=== PATIENT | male | born 1980 | race Caucasian/White ===

== ENCOUNTER 2017-02-11 12:00 | Inpatient (IN) | payer MEDICARE ==
[2017-02-11] VITALS (13 sets, daily range): BP systolic 94–122; BP diastolic 57–84; PULSE 104–233; RESP 15–18; TEMP 98.2–98.6; O2SAT 97–99
[~2017-02-11] VITALS: Ht 167.6 cm; Wt 57.7 kg
[2017-02-11] MEDS ORDERED: DILTIAZEM HCL 25 MG/5 ML VIAL IV ONE (12:30)
--- NOTE | 2017-02-11 12:48 | PD ---
HPI Chief Complaint: Chest Pain Time Seen by Provider: 12:07 Travel History International Travel<30 days: No Contact w/Intl Traveler<30days: No Traveled to known affect area: No History of Present Illness HPI 36-year-old male that presents to the ED for evaluation of chest discomfort and palpitations. Patient has a significant history including GA, CHF and A. fib. 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 She is for the most part wheelchair bound and has had multiple issues with his heart. Patient takes Xeralto as well as antiarrhythmics. Per patient the symptoms started yesterday. He started having some chest pressure and sensation of numbness and tingling to his hands bilaterally. She states that this went away and he felt fine. His been having some cough since yesterday as well. 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 This is what prompted him evaluation. He did check his heart rate was elevated. He states that he took 2 of headaches or altered today to prevent any blood clots. He also took all his medications as prescribed but states that the symptoms have not improved. He states that he feels chest pressure radiates to both arms. He follows with Dr. Cervantes for cardiology. [facility] Past Medical History Hx Anticoagulant Therapy: Yes Atrial Fibrillation: Yes Cardiovascular Problems: Yes (GA, CHF, HX OF AFIB) High Cholesterol: Yes Congestive Heart Failure: Yes Neurologic: Yes (FRIEDREICH'S ATAXIA ) Tetanus Vaccination: Unknown Influenza Vaccination: Yes Social History Alcohol Use: Yes (DAILY 1 GLASS WINE) Tobacco Use: No Substance Use: Yes (THC) Allergies-Medications (Allergen,Severity, Reaction): Coded Allergies: No Known Allergies (Unverified , 02/11/17) Review of Systems Except as stated in HPI: all other systems reviewed are Neg Physical Exam Narrative GENERAL: SKIN: Warm and dry. HEAD: Atraumatic. Normocephalic. EYES: Pupils equal and round. No scleral icterus. No injection or drainage. ENT: No nasal bleeding or discharge. Mucous membranes pink and moist. Tongue is midline. No uvula deviation. NECK: Trachea midline. No JVD. CARDIOVASCULAR: Regular rate and rhythm. No murmurs, S3, S4. RESPIRATORY: No accessory muscle use. Clear to auscultation. Breath sounds equal bilaterally. GASTROINTESTINAL: Abdomen soft, non-tender, nondistended. Hepatic and splenic margins not palpable. MUSCULOSKELETAL: Extremities without clubbing, cyanosis, or edema. No obvious deformities. Full range of motion of the upper and lower extremities bilaterally. 2+ pulses bilaterally. NEUROLOGICAL: Awake and alert. No obvious cranial nerve deficits. Motor grossly within normal limits. Five out of 5 muscle strength in the arms and legs. Normal speech. Ataxia noted. PSYCHIATRIC: Appropriate mood and affect; insight and judgment normal. Data Data Last Documented VS Vital Signs Date Time Temp Pulse Resp B/P (MAP) Pulse Ox O2 Delivery O2 Flow Rate FiO2 02/11/17 12:38 118 15 94/61 (72) 97 Room Air 02/11/17 12:01 98.6 Orders Orders Electrocardiogram (02/11/17 12:14) Complete Blood Count With Diff (02/11/17 12:14) Basic Metabolic Panel (Bmp) (02/11/17 12:14) Ckmb (Isoenzyme) Profile (02/11/17 12:14) Troponin I (02/11/17 12:14) Magnesium (Mg) (02/11/17 12:14) Thyroid Stimulating Hormone (02/11/17 12:14) Chest, Single Ap (02/11/17 12:14) Iv Access Insert/Monitor (02/11/17 12:14) Ecg Monitoring (02/11/17 12:14) Oximetry (02/11/17 12:14) B-Type Natriuretic Peptide (02/11/17 12:19) Diltiazem Inj (Cardizem Inj) (02/11/17 12:30) Coag Profile (02/11/17 13:00) Urinalysis - C+S If Indicated (02/11/17 13:19) Diltiazem Inj (Cardizem Inj) (02/11/17 14:00) Admit Order (Ed Use Only) (02/11/17 14:06) Labs Laboratory Tests Test 02/11/17 12:30 02/11/17 13:40 White Blood Count 7.8 TH/MM3 Red Blood Count 5.16 MIL/MM3 Hemoglobin 15.5 GM/DL Hematocrit 45.8 % Mean Corpuscular Volume 88.7 FL Mean Corpuscular Hemoglobin 30.1 PG Mean Corpuscular Hemoglobin Concent 33.9 % Red Cell Distribution Width 13.2 % Platelet Count 265 TH/MM3 Mean Platelet Volume 7.3 FL Neutrophils (%) (Auto) 66.1 % Lymphocytes (%) (Auto) 26.6 % Monocytes (%) (Auto) 6.0 % Eosinophils (%) (Auto) 0.5 % Basophils (%) (Auto) 0.8 % Neutrophils # (Auto) 5.2 TH/MM3 Lymphocytes # (Auto) 2.1 TH/MM3 Monocytes # (Auto) 0.5 TH/MM3 Eosinophils # (Auto) 0.0 TH/MM3 Basophils # (Auto) 0.1 TH/MM3 CBC Comment DIFF FINAL Differential Comment Prothrombin Time 16.4 SEC Prothromb Time International Ratio 1.5 RATIO Activated Partial Thromboplast Time 38.1 SEC Blood Urea Nitrogen 11 MG/DL Creatinine 1.31 MG/DL Random Glucose 93 MG/DL Calcium Level 8.8 MG/DL Magnesium Level 1.9 MG/DL Sodium Level 138 MEQ/L Potassium Level 4.4 MEQ/L Chloride Level 104 MEQ/L Carbon Dioxide Level 26.2 MEQ/L Anion Gap 8 MEQ/L Estimat Glomerular Filtration Rate 62 ML/MIN Total Creatine Kinase 92 U/L Troponin I 0.15 NG/ML B-Type Natriuretic Peptide 102 PG/ML Thyroid Stimulating Hormone 3rd Gen 1.100 uIU/ML Urine Color LIGHT-YELLOW Urine Turbidity CLEAR Urine pH 7.0 Urine Specific [place] 1.008 Urine Protein NEG mg/dL Urine Glucose (UA) NEG mg/dL Urine Ketones NEG mg/dL Urine Occult Blood NEG Urine Nitrite NEG Urine Bilirubin NEG Urine Urobilinogen LESS THAN 2.0 MG/DL Urine Leukocyte Esterase NEG Urine RBC 1 /hpf Urine WBC 1 /hpf Urine Amorphous Sediment RARE Urine Bacteria RARE /hpf Urine Hyaline Casts 3 /lpf Microscopic Urinalysis Comment CULT NOT INDICATED MDM Medical Decision Making Medical Screen Exam Complete: Yes Emergency Medical Condition: Yes Medical Record Reviewed: Yes Interpretation(s) EKG shows atrial flutter with a heart rate in the 110s. No obvious sign of acute ischemia. Read by me and attending. CBC & BMP Diagram 02/11/17 12:30 Calcium Level 8.8, Magnesium Level 1.9 Troponin of 0.17 CK-MB negative. BNP in the 100s Coags slightly elevated Last Impressions Chest X-Ray 02/11/17 1214 Signed Impressions: Service Date/Time: Saturday, February 11, 2017 12:41 - CONCLUSION: No acute intrathoracic disease.. Ramón Yip MD Differential Diagnosis CHF exacerbation versus atrial fibrillation versus atrial flutter versus tachycardia versus chest pain versus a typical chest pain versus dehydration versus pneumonia Narrative Course 36-year-old male that presents to the ED for evaluation of chest pain and possible palpitations. Patient was properly examined and was found to have signs and symptoms of respiratory distress. He does appear to be tachycardic dysrhythmia. EKG was initially done and show atrial flutter with RVR. Labs and imaging were ordered. Case was discussed in my attending who recommends Cardizem. She patient was given Cardizem bolus. Patient was reassessed and he is already went down but it continues to go up. His blood pressure did went down as well. Patient still tachycardia at 1/10. Case was discussed in my attending Dr. Boss who recommends admission. Patient was also found to have a positive troponin. Patient does have significant history for cardiac. Recommendations for admission for further evaluation of this. Patient agrees with this plan. Dr Bonds agrees to admission. Diagnosis Primary Impression: Atrial fibrillation with RVR Additional Impression: Chest pain in adult Admitting Information Admitting Physician Requests: Admit Arnie Brown Feb 11, 2017 12:48
[2017-02-11 12:59] LABS: AUTOMATED NEUTROPHIL # 5.2 TH/MM3 (1.8-7.7); BASOPHIL # 0.1 TH/MM3 (0-0.2); BASOPHIL % 0.8 % (0.0-2.0); EOSINOPHIL % 0.5 % (0.0-4.0); HEMATOCRIT 45.8 % (39.0-51.0); HEMO FLAGS DIFF FINAL; LYMPH % 26.6 % (9.0-44.0); LYMPHOCYTE # 2.1 TH/MM3 (1.0-4.8); MEAN CELL VOLUME 88.7 FL (80.0-100.0); MEAN CORPUSCULAR HEMOGLOBIN 30.1 PG (27.0-34.0); MEAN CORPUSCULAR HGB CONC 33.9 % (32.0-36.0); NEUT % 66.1 % (16.0-70.0); PLATELET COUNT 265 TH/MM3 (150-450); RED BLOOD COUNT 5.16 MIL/MM3 (4.50-5.90); RED CELL DISTRIBUTION WIDTH 13.2 % (11.6-17.2); WHITE BLOOD COUNT 7.8 TH/MM3 (4.0-11.0)
--- NOTE | 2017-02-11 13:00 | RADRPT ---
EXAM DATE/TIME: 02/11/2017 12:41 [place] COMPARISON: No previous studies available for comparison. INDICATIONS : Chest pains with shortness of breath. MEDICAL HISTORY : Myocardial infarction. Scoliosis SURGICAL HISTORY : Cotto rods. ENCOUNTER: Initial ACUITY: 1 day PAIN SCORE: 8/10 LOCATION: Bilateral chest FINDINGS: A single view of the chest demonstrates the lungs to be symmetrically aerated without evidence of mas s, infiltrate or effusion. The cardiomediastinal contours are unremarkable. Osseous structures are intact. There are spinal rods cross the thoracic spine. CONCLUSION: No acute intrathoracic disease.. Ramón Yip MD on February 11, 2017 at 12:58 Board Certified Radiologist. This report was verified electronically.
[2017-02-11 13:12] LABS: BICARBONATE 26.2 MEQ/L (21.0-32.0); MAGNESIUM 1.9 MG/DL (1.5-2.5); POTASSIUM 4.4 MEQ/L (3.5-5.1)
[2017-02-11 13:19] LABS: APTT (PATIENT) 38.1 SEC (24.3-30.1); INTERNATIONAL NORMALIZED RATIO 1.5 RATIO; PROTHROMBIN TIME - PATIENT 16.4 SEC (9.8-11.6)
[2017-02-11] MEDS ORDERED: DILTIAZEM INJ 125 MG in SODIUM CHLORIDE 0.9% INJ 100 ML IV PRN (14:00)
[2017-02-11 14:09] LABS: BACTERIA, URINE RARE /hpf; BLOOD, URINE NEG (NEG); COMMENT (UR) CULT NOT INDICATED; CULTURE IF INDICATED CULT NOT INDICATED; GLUCOSE,URINE NEG (NEG); HYALINE CAST, URINE 3 /lpf (RARE); KETONE, URINE NEG (NEG); NITRITE,URINE NEG (NEG); URINE COLOR LIGHT-YELLOW (YELLW/STRAW)
--- NOTE | 2017-02-11 14:13 | PD ---
Data Data Last Documented VS Vital Signs Date Time Temp Pulse Resp B/P (MAP) Pulse Ox O2 Delivery O2 Flow Rate FiO2 02/11/17 12:38 118 15 94/61 (72) 97 Room Air 02/11/17 12:01 98.6 Orders Orders Electrocardiogram (02/11/17 12:14) Complete Blood Count With Diff (02/11/17 12:14) Basic Metabolic Panel (Bmp) (02/11/17 12:14) Ckmb (Isoenzyme) Profile (02/11/17 12:14) Troponin I (02/11/17 12:14) Magnesium (Mg) (02/11/17 12:14) Thyroid Stimulating Hormone (02/11/17 12:14) Chest, Single Ap (02/11/17 12:14) Iv Access Insert/Monitor (02/11/17 12:14) Ecg Monitoring (02/11/17 12:14) Oximetry (02/11/17 12:14) B-Type Natriuretic Peptide (02/11/17 12:19) Diltiazem Inj (Cardizem Inj) (02/11/17 12:30) Coag Profile (02/11/17 13:00) Urinalysis - C+S If Indicated (02/11/17 13:19) Diltiazem Inj (Cardizem Inj) (02/11/17 14:00) Admit Order (Ed Use Only) (02/11/17 14:06) Labs Laboratory Tests Test 02/11/17 12:30 02/11/17 13:40 White Blood Count 7.8 TH/MM3 Red Blood Count 5.16 MIL/MM3 Hemoglobin 15.5 GM/DL Hematocrit 45.8 % Mean Corpuscular Volume 88.7 FL Mean Corpuscular Hemoglobin 30.1 PG Mean Corpuscular Hemoglobin Concent 33.9 % Red Cell Distribution Width 13.2 % Platelet Count 265 TH/MM3 Mean Platelet Volume 7.3 FL Neutrophils (%) (Auto) 66.1 % Lymphocytes (%) (Auto) 26.6 % Monocytes (%) (Auto) 6.0 % Eosinophils (%) (Auto) 0.5 % Basophils (%) (Auto) 0.8 % Neutrophils # (Auto) 5.2 TH/MM3 Lymphocytes # (Auto) 2.1 TH/MM3 Monocytes # (Auto) 0.5 TH/MM3 Eosinophils # (Auto) 0.0 TH/MM3 Basophils # (Auto) 0.1 TH/MM3 CBC Comment DIFF FINAL Differential Comment Prothrombin Time 16.4 SEC Prothromb Time International Ratio 1.5 RATIO Activated Partial Thromboplast Time 38.1 SEC Blood Urea Nitrogen 11 MG/DL Creatinine 1.31 MG/DL Random Glucose 93 MG/DL Calcium Level 8.8 MG/DL Magnesium Level 1.9 MG/DL Sodium Level 138 MEQ/L Potassium Level 4.4 MEQ/L Chloride Level 104 MEQ/L Carbon Dioxide Level 26.2 MEQ/L Anion Gap 8 MEQ/L Estimat Glomerular Filtration Rate 62 ML/MIN Total Creatine Kinase 92 U/L Troponin I 0.15 NG/ML B-Type Natriuretic Peptide 102 PG/ML Thyroid Stimulating Hormone 3rd Gen 1.100 uIU/ML Urine Color LIGHT-YELLOW Urine Turbidity CLEAR Urine pH 7.0 Urine Specific [place] 1.008 Urine Protein NEG mg/dL Urine Glucose (UA) NEG mg/dL Urine Ketones NEG mg/dL Urine Occult Blood NEG Urine Nitrite NEG Urine Bilirubin NEG Urine Urobilinogen LESS THAN 2.0 MG/DL Urine Leukocyte Esterase NEG Urine RBC 1 /hpf Urine WBC 1 /hpf Urine Amorphous Sediment RARE Urine Bacteria RARE /hpf Urine Hyaline Casts 3 /lpf Microscopic Urinalysis Comment CULT NOT INDICATED MDM Medical Record Reviewed: Yes Supervised Visit with VIKTORIYA: Yes Narrative Course I, Dr. Strickland, have reviewed the advance practice practitioner's documentation and am in agreement, met with the patient face to face, made the diagnosis, and the medical decision making was done by me. *My assessment and Findings: d/w Dr Bonds for [facility] service. Admission for management of AFib with RVR and elevation of troponin. Kingston Strickland MD Feb 11, 2017 14:13
[2017-02-11] MEDS ORDERED: SODIUM CHLORIDE 0.9% FLUSH 10 ML FLUSH IV FLUSH PRN (14:15)
[2017-02-11] MEDS ORDERED: NALOXONE HCL 0.4 MG/ML AMP IV PUSH PRN (14:15)
--- NOTE | 2017-02-11 14:47 | HHI.HP ---
HPI Service [facility] Primary Care Physician Ezekiel Heart M.D. Admission Diagnosis acute A. fib with RVR with chest pain and positive troponin Diagnoses: Travel History International Travel<30 Days: No Contact w/Intl Traveler <30 Da: No Traveled to Known Affected Are: No History of Present Illness chest pain after waking up in am simlar to pain before he had mi has not had it for one year took addtional lopresso 75mg took xarelto krishna radiates to back and left arm underneath did not take nitro felt dizzy a bit felt somewhat nausea heart was racing brought to hospital had a little bit of coughing has bene taking allergy meds at night - mainly benadryl- has ferrets at home no fever ef30% no urianry symptoms no blood had diarrhea - about 4 days ago , also has been urinating more ever since has been loperamide about 3 days ago also had same gi symptoms after eating something together Past Family Social History Past Medical History chf ef 30% - last echo about [address] Cervantes coronary angiogram about 5 yrs ago in [place]- clean arteries htn afib braulio ataxia Past Surgical History spinal fusion in 2000 or so angiogram 5 yrs ago Reported Medications multaq 400mg bid metoprolol 75mg succinate twice a day losartan 50mg po daily xarelto 20mg po qhs clonipine 2mg qhs Allergies: Coded Allergies: No Known Allergies (Unverified , 02/11/17) Family History father- mi grandfather paternal- mi Social History never smoked used to use amphetamine at around 18yo- 21 yo or so only driks about 2 glass of wine every day or so Physical Exam Vital Signs Vital Signs Date Time Temp Pulse Resp B/P (MAP) Pulse Ox O2 Delivery O2 Flow Rate FiO2 02/11/17 14:22 117 99/54 02/11/17 12:38 118 15 94/61 (72) 97 Room Air 02/11/17 12:18 112 16 122/76 (91) 97 Room Air 02/11/17 12:14 110 122/76 (91) 02/11/17 12:01 98.6 233 16 122/69 (68) 97 Physical Exam GENERAL: This is a well-nourished, well-developed patient, in no apparent distress. SKIN: No rashes, ecchymoses or lesions. Cool and dry. HEAD: Atraumatic. Normocephalic. No temporal or scalp tenderness. EYES: Pupils equal round and reactive. Extraocular motions intact. No scleral icterus. No injection or drainage. ENT: Nose without bleeding, purulent drainage or septal hematoma. Throat without erythema, tonsillar hypertrophy or exudate. Uvula midline. Airway patent. NECK: Trachea midline. No JVD or lymphadenopathy. Supple, nontender, no meningeal signs. CARDIOVASCULAR: Regular rate and rhythm without murmurs, gallops, or rubs. RESPIRATORY: Clear to auscultation. Breath sounds equal bilaterally. No wheezes , rales, or rhonchi. GASTROINTESTINAL: Abdomen soft, non-tender, nondistended. No hepato-splenomegaly , or palpable masses. No guarding. MUSCULOSKELETAL: Extremities without clubbing, cyanosis, or edema. No joint tenderness, effusion, or edema noted. No calf tenderness. Negative Homans sign bilaterally. NEUROLOGICAL: Awake and alert. Cranial nerves II through XII intact. Motor and sensory grossly within normal limits. Five out of 5 muscle strength in all muscle groups. Normal speech. Laboratory Laboratory Tests Test 02/11/17 12:30 02/11/17 13:40 White Blood Count 7.8 Red Blood Count 5.16 Hemoglobin 15.5 Hematocrit 45.8 Mean Corpuscular Volume 88.7 Mean Corpuscular Hemoglobin 30.1 Mean Corpuscular Hemoglobin Concent 33.9 Red Cell Distribution Width 13.2 Platelet Count 265 Mean Platelet Volume 7.3 Neutrophils (%) (Auto) 66.1 Lymphocytes (%) (Auto) 26.6 Monocytes (%) (Auto) 6.0 Eosinophils (%) (Auto) 0.5 Basophils (%) (Auto) 0.8 Neutrophils # (Auto) 5.2 Lymphocytes # (Auto) 2.1 Monocytes # (Auto) 0.5 Eosinophils # (Auto) 0.0 Basophils # (Auto) 0.1 CBC Comment DIFF FINAL Differential Comment Prothrombin Time 16.4 Prothromb Time International Ratio 1.5 Activated Partial Thromboplast Time 38.1 Blood Urea Nitrogen 11 Creatinine 1.31 Random Glucose 93 Calcium Level 8.8 Magnesium Level 1.9 Sodium Level 138 Potassium Level 4.4 Chloride Level 104 Carbon Dioxide Level 26.2 Anion Gap 8 Estimat Glomerular Filtration Rate 62 Total Creatine Kinase 92 Troponin I 0.15 B-Type Natriuretic Peptide 102 Thyroid Stimulating Hormone 3rd Gen 1.100 Urine Color LIGHT-YELLOW Urine Turbidity CLEAR Urine pH 7.0 Urine Specific [place] 1.008 Urine Protein NEG Urine Glucose (UA) NEG Urine Ketones NEG Urine Occult Blood NEG Urine Nitrite NEG Urine Bilirubin NEG Urine Urobilinogen LESS THAN 2.0 Urine Leukocyte Esterase NEG Urine RBC 1 Urine WBC 1 Urine Amorphous Sediment RARE Urine Bacteria RARE Urine Hyaline Casts 3 Microscopic Urinalysis Comment CULT NOT INDICATED Result Diagram: 02/11/17 1230 02/11/17 1230 Caprini VTE Risk Assessment Caprini Risk Assessment Model Point Value = 1 Point Value = 2 Point Value = 3 Point Value = 5 Age 41-60 Minor surgery BMI > 25 kg/m2 Swollen legs Varicose veins or History of unexplained or recurrent spontaneous Oral contraceptives or hormone replacement Sepsis (< 1 month) Serious lung disease, including pneumonia (< 1 month) Abnormal pulmonary function Acute myocardial infarction Congestive heart failure (< 1 month) History of inflammatory bowel disease Medical patient at bed rest Age 61-74 Arthroscopic surgery Major open surgery (> 45 min) Laparoscopic surgery (> 45 min) Malignancy Confined to bed (> 72 hours) Immobilizing plaster cast Central venous access Age >= 75 History of VTE Family history of VTE Factor V Leiden Prothrombin [id number] Lupus anticoagulant Anticardiolipin antibodies Elevated serum homocysteine Heparin-induced thrombocytopenia Other congenital or acquired thrombophilia Stroke (< 1 month) Elective arthroplasty Hip, pelvis, or leg fracture Acute spinal cord injury (< 1 month) Prophylaxis Regimen Total Risk Factor Score Risk Level Prophylaxis Regimen 0-1 Low Early ambulation 2 Moderate Order ONE of the following: *Sequential Compression Device (SCD) *Heparin 5000 units SQ BID 3-4 Higher Order ONE of the following medications: *Heparin 5000 units SQ TID *Enoxaparin/Lovenox 40 mg SQ daily (WT < 150 kg, CrCl > 30 mL/min) *Enoxaparin/Lovenox 30 mg SQ daily (WT < 150 kg, CrCl > 10-29 mL/min) *Enoxaparin/Lovenox 30 mg SQ BID (WT < 150 kg, CrCl > 30 mL/min) AND/OR *Sequential Compression Device (SCD) 5 or more Highest Order ONE of the following medications: *Heparin 5000 units SQ TID (Preferred with Epidurals) *Enoxaparin/Lovenox 40 mg SQ daily (WT < 150 kg, CrCl > 30 mL/min) *Enoxaparin/Lovenox 30 mg SQ daily (WT < 150 kg, CrCl > 10-29 mL/min) *Enoxaparin/Lovenox 30 mg SQ BID (WT < 150 kg, CrCl > 30 mL/min) AND *Sequential Compression Device (SCD) Assessment and Plan Assessment and Plan afib with rvr likely from dehydration ; was HR 233 on arrival; was started on cardizem drip in ER, currently much better and HR around 110 elev trop- likely demand mediated vs nstemi recent gastroenteritis acute kidney injury- secondary to dehydration/ fluid loss taper off cardizem drip po hydration serial enzymes and ekg resume home meds startign night time dose - if bp permits hold xarelto today- may restart tomorrow if no cardiac cath; if there is cath, then to bridge with heparin by tomorrow am obtain pt's baseline cr from pcp office - had it drawn about one week ago or so repeat bmp in am to follow renal function Discussed Condition With patient,, er pa Physician Certification Order for Inpatient Services The services are ordered in accordance with Medicare regulations or non- Medicare payer requirements, as applicable. In the case of services not specified as inpatient-only, they are appropriately provided as inpatient services in accordance with the 2-midnight benchmark. days is the estimated time the patient will need to remain in the hospital, assuming treatment plan goals are met and no additional complications. Carlos Bonds MD Feb 11, 2017 14:47
--- NOTE | 2017-02-11 16:28 | MB ---
cc: MONICA REZA M.D. DATE OF CONSULTATION 02/11/17 ELECTROPHYSIOLOGY STUDY REASON FOR CONSULTATION Atrial fibrillation with biventricular response. HISTORY OF PRESENT ILLNESS Mr. Mcfarlane is a 36-year-old gentleman with history of Friedreich's ataxia, using a wheelchair. History of atrial fibrillation, hypercholesterolemia. Gentleman drinks one glass of wine a day and use THC. Gentleman ___ history of atrial fibrillation. He is admitted currently through the emergency room due to atrial fibrillation with biventricular response. The chart was reviewed. The patient was evaluated. ALLERGIES None reported. SOCIAL HISTORY Has a glass of wine a day and uses THC. FAMILY HISTORY Noncontributory to his current medical condition. MEDICATIONS The gentleman is currently on IV Cardizem. At home he was on basically no medication. PHYSICAL EXAMINATION GENERAL: Alert, fully oriented. VITAL SIGNS: His blood pressure 94/61, pulse around 115-120. LUNGS: Ventilated. CARDIOVASCULAR: S1-S2, irregular tachycardic. ABDOMEN: Soft. No mass. EXTREMITIES: No edema. CARDIOLOGY STUDIES The electrocardiogram atrial fibrillation with biventricular response. LABORATORY DATA Hemoglobin 15.5, white blood cell 7.8, potassium 4.4, creatinine 1.31. Troponin 0.15. TSH 1.1. INR 1.5. ASSESSMENT AND RECOMMENDATIONS Mr. Mcfarlane has poor compliance with medical management. This is a gentleman that follows most over the internet and decides by himself what kind of treatment he wants to follow. He is currently in atrial fibrillation with biventricular response. He believes it is because he is dehydrated and taking Gatorade will resolve the issue. He does not believe the medication is going to do anything for him. His blood pressure is low. His heart rate cannot be controlled. He will need digoxin. I am not sure post discharge the gentleman going to take the medication. My recommendation at this point is continue with current management. Rate control. The gentleman will be followed this weekend by one of my partners. Case extensively discussed with him and his . Monica Reza MD HS/EO /3:59 PM /4:07 PM
[2017-02-11] MEDS ORDERED: METO-309 PO (17:09)
[2017-02-11] MEDS ORDERED: CLON2TAB PO (17:09)
[2017-02-11] MEDS ORDERED: XARE20TA PO (17:09)
[2017-02-11] MEDS ORDERED: LOSA50TA PO (17:09)
[2017-02-11] MEDS ORDERED: MULT400T PO (17:09)
[2017-02-11] MEDS ORDERED: ACETAMINOPHEN/HYDROcodone 325 MG/5 MG TAB PO PRN (20:00)
[2017-02-11] MEDS: ACETAMINOPHEN/HYDROcodone 325 MG/10 MG TAB PO PRN (20:59)
[2017-02-11] MEDS: DRONEDARONE 400 MG TAB PO SCH (20:59)
[2017-02-11] MEDS: clonazePAM 1 MG TAB PO SCH (20:59)
[2017-02-11] MEDS: SODIUM CHLORIDE 0.9% FLUSH 10 ML FLUSH IV FLUSH SCH (21:00)
[2017-02-11] MEDS: METOPROLOL SUCCINATE 50 MG EXTENDED RELEASE TAB PO SCH (21:00)
[2017-02-12] VITALS (25 sets, daily range): BP systolic 87–119; BP diastolic 56–81; PULSE 105–122; RESP 18–20; TEMP 97.2–98.6; O2SAT 96–99
[2017-02-12 06:01] LABS: BICARBONATE 28.6 MEQ/L (21.0-32.0); POTASSIUM 3.9 MEQ/L (3.5-5.1)
[2017-02-12 06:17] LABS: AUTOMATED NEUTROPHIL # 3.2 TH/MM3 (1.8-7.7); BASOPHIL # 0.1 TH/MM3 (0-0.2); BASOPHIL % 1.1 % (0.0-2.0); EOSINOPHIL # 0.1 TH/MM3 (0-0.4); HEMATOCRIT 45.2 % (39.0-51.0); HEMO FLAGS DIFF FINAL; LYMPH % 47.8 % (9.0-44.0); LYMPHOCYTE # 3.7 TH/MM3 (1.0-4.8); MEAN CELL VOLUME 88.6 FL (80.0-100.0); MEAN CORPUSCULAR HGB CONC 35.1 % (32.0-36.0); MONO % 7.6 % (0.0-8.0); NEUT % 42.5 % (16.0-70.0); PLATELET COUNT 242 TH/MM3 (150-450); RED CELL DISTRIBUTION WIDTH 13.5 % (11.6-17.2); WHITE BLOOD COUNT 7.6 TH/MM3 (4.0-11.0)
[2017-02-12] MEDS ORDERED: DOCUSATE SODIUM 50 MG/SENNA 8.6 MG TAB PO PRN (08:45)
[2017-02-12] MEDS ORDERED: ONDANSETRON HCL 4 MG/2 ML VIAL IV PUSH PRN (08:45)
[2017-02-12] MEDS ORDERED: ALUMINUM/MAGNESIUM/SIMETH 30 ML CUP PO PRN (08:45)
[2017-02-12] MEDS ORDERED: ACETAMINOPHEN 325 MG TAB PO PRN (08:45)
[2017-02-12] MEDS: DRONEDARONE 400 MG TAB PO SCH ×2 (09:42→21:43)
[2017-02-12] MEDS: LOSARTAN 50 MG TAB PO SCH (09:42)
[2017-02-12] MEDS: METOPROLOL SUCCINATE 50 MG EXTENDED RELEASE TAB PO SCH ×2 (09:43→21:43)
[2017-02-12] MEDS: SODIUM CHLORIDE 0.9% FLUSH 10 ML FLUSH IV FLUSH SCH ×2 (09:43→21:00)
[2017-02-12] MEDS: ACETAMINOPHEN/HYDROcodone 325 MG/10 MG TAB PO PRN ×2 (09:51→18:36)
--- NOTE | 2017-02-12 11:23 | HHI.PR ---
Subjective Remarks Follow-up atrial fibrillation with biventricular response 02/12/17-patient seen and examined, still in A. fib with low BP however improved now. Patient states he does no want to take digoxin. Denies any chest pain Objective Vitals Vital Signs Date Time Temp Pulse Resp B/P (MAP) Pulse Ox O2 Delivery O2 Flow Rate FiO2 02/12/17 09:30 119/81 (94) 02/12/17 08:00 118 02/12/17 07:15 97.7 117 19 87/56 (66) 98 02/12/17 07:15 117 02/12/17 06:00 116 02/12/17 05:00 114 02/12/17 04:00 98.6 115 18 97/67 (77) 99 02/12/17 04:00 114 02/12/17 03:00 114 02/12/17 02:00 116 02/12/17 01:00 116 02/12/17 00:40 98.6 118 18 97/67 (77) 99 02/11/17 23:00 116 02/11/17 22:00 118 02/11/17 22:00 18 02/11/17 21:00 118 02/11/17 20:30 98.2 120 18 110/84 (93) 99 02/11/17 20:00 118 02/11/17 19:00 116 02/11/17 17:45 98.4 116 18 108/62 (77) 99 02/11/17 16:22 111 15 112/57 (75) 98 02/11/17 16:00 101 02/11/17 15:02 104 02/11/17 14:22 117 99/54 02/11/17 12:38 118 15 94/61 (72) 97 Room Air 02/11/17 12:18 112 16 122/76 (91) 97 Room Air 02/11/17 12:14 110 122/76 (91) 02/11/17 12:01 98.6 233 16 122/69 (86) 97 I/O 02/11/17 02/11/17 02/11/17 02/12/17 02/12/17 02/12/17 07:00 15:00 23:00 07:00 15:00 23:00 Intake Total 480 ml Output Total 500 ml Balance -20 ml Intake Oral 480 ml Output Urine Total 500 ml # Bowel Movements 1 Result Diagram: 02/12/17 0504 02/12/17 0504 Imaging Last Impressions Chest X-Ray 02/11/17 1214 Signed Impressions: Service Date/Time: Saturday, February 11, 2017 12:41 - CONCLUSION: No acute intrathoracic disease.. Ramón Yip MD Objective Remarks GENERAL: NAD SKIN: Warm and dry. HEAD: Normocephalic. EYES: No scleral icterus. No injection or drainage. NECK: Supple, trachea midline. No JVD or lymphadenopathy. CARDIOVASCULAR: Irregular Regular rate and rhythm without murmurs, gallops, or rubs. RESPIRATORY: Breath sounds equal bilaterally. No accessory muscle use. GASTROINTESTINAL: Abdomen soft, non-tender, nondistended. MUSCULOSKELETAL: No cyanosis, or edema. BACK: Nontender without obvious deformity. No CVA tenderness. 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
--- NOTE | 2017-02-12 12:16 | EKG ---
Date Performed: 02/12/2017 Time Performed: 01:56:08 PTAGE: 36 years EKG: Atrial flutter with rapid ventricular response with 2:1 A-V block Right axis deviation Infe rior ST-T changes are nonspecific Abnormal ECG PREVIOUS TRACING : 02/11/2017 12.18 Since previous tracing, no significant change. DOCTOR: Isaias Braden Interpretating Date/Time 02/12/2017 12:15:49
--- NOTE | 2017-02-12 12:16 | EKG ---
Date Performed: 02/11/2017 Time Performed: 12:18:11 PTAGE: 36 years EKG: Atrial flutter with 2:1 AV conduction Vertical QRS axis Minor nonspecific ST-T wave change Clinical correlation is recommended ABNORMAL ECG NO PREVIOUS TRACING DOCTOR: Isaias Braden Interpretating Date/Time 02/12/2017 12:15:23
--- NOTE | 2017-02-12 12:39 | PD.CARD.PN ---
Subjective Subjective Remarks no cv complaints still i afib wit rvr Objective Medications Current Medications Medications (Trade) Dose Ordered Sig/Claire Route Start Time Stop Time Status Last Admin (NS Flush) 2 ml UNSCH PRN IV FLUSH 02/11/17 14:15 (NS Flush) 2 ml BID IV FLUSH 02/11/17 21:00 02/12/17 09:43 (Narcan Inj) 0.4 mg UNSCH PRN IV PUSH 02/11/17 14:15 (Multaq) 400 mg BID PO 02/11/17 21:00 02/12/17 09:42 (Toprol Xl) 75 mg BID PO 02/11/17 21:00 02/12/17 09:43 (Cozaar) 50 mg DAILY PO 02/12/17 09:00 02/12/17 09:42 (KlonoPIN) 2 mg HS PO 02/11/17 21:00 02/11/17 20:59 (Camas 5-325 Mg) 1 tab Q4H PRN PO 02/11/17 20:00 (Camas 10-325 Mg) 1 tab Q4H PRN PO 02/11/17 20:00 02/12/17 09:51 (Tylenol) 650 mg Q4H PRN PO 02/12/17 08:45 (Zofran Inj) 4 mg Q6H PRN IV PUSH 02/12/17 08:45 (Michelle-Colace) 1 tab BID PRN PO 02/12/17 08:45 (Mag-Al Plus Susp Liq) 30 ml Q6H PRN PO 02/12/17 08:45 (Restoril) 15 mg HS PRN PO 02/12/17 21:00 Vital Signs / I&O Vital Signs Date Time Temp Pulse Resp B/P (MAP) Pulse Ox O2 Delivery O2 Flow Rate FiO2 02/12/17 12:00 119 02/12/17 11:00 98.4 119 20 100/65 (77) 96 02/12/17 11:00 117 02/12/17 11:00 19 02/12/17 10:00 118 02/12/17 09:30 119/81 (94) 02/12/17 09:00 118 02/12/17 08:00 118 02/12/17 07:15 97.7 117 19 87/56 (66) 98 02/12/17 07:15 117 02/12/17 06:00 116 02/12/17 05:00 114 02/12/17 04:00 98.6 115 18 97/67 (77) 99 02/12/17 04:00 114 02/12/17 03:00 114 02/12/17 02:00 116 02/12/17 01:00 116 02/12/17 00:40 98.6 118 18 97/67 (77) 99 02/11/17 23:00 116 02/11/17 22:00 118 02/11/17 21:00 118 02/11/17 20:30 98.2 120 18 110/84 (93) 99 02/11/17 20:00 118 02/11/17 19:00 116 02/11/17 17:45 98.4 116 18 108/62 (77) 99 02/11/17 16:22 111 15 112/57 (75) 98 02/11/17 16:00 101 02/11/17 15:02 104 02/11/17 14:22 117 99/54 02/11/17 12:38 118 15 94/61 (72) 97 Room Air I/O 02/11/17 02/11/17 02/11/17 02/12/17 02/12/17 02/12/17 07:00 15:00 23:00 07:00 15:00 23:00 Intake Total 480 ml Output Total 500 ml Balance -20 ml Intake Oral 480 ml Output Urine Total 500 ml # Bowel Movements 1 Physical Exam GENERAL: Well-nourished, well-developed patient. SKIN: Warm and dry. HEAD: Normocephalic. EYES: No scleral icterus. No injection or drainage. NECK: Supple, trachea midline. No JVD or lymphadenopathy. CARDIOVASCULAR: Irr irr NO murmurs, gallops, or rubs. RESPIRATORY: Breath sounds equal bilaterally. No accessory muscle use. GASTROINTESTINAL: Abdomen soft, non-tender, nondistended. EXTREMITIES: No cyanosis, or edema. NEUROLOGICAL: Awake, alert, and oriented x 3. Non-focal. Laboratory Laboratory Tests Test 02/11/17 13:40 02/11/17 20:38 02/12/17 00:10 02/12/17 05:04 Urine Color LIGHT-YELLOW Urine Turbidity CLEAR Urine pH 7.0 Urine Specific [facility] 1.008 Urine Protein NEG mg/dL Urine Glucose (UA) NEG mg/dL Urine Ketones NEG mg/dL Urine Occult Blood NEG Urine Nitrite NEG Urine Bilirubin NEG Urine Urobilinogen LESS THAN 2.0 MG/DL Urine Leukocyte Esterase NEG Urine RBC 1 /hpf Urine WBC 1 /hpf Urine Amorphous Sediment RARE Urine Bacteria RARE /hpf Urine Hyaline Casts 3 /lpf Microscopic Urinalysis Comment CULT NOT INDICATED Total Creatine Kinase 69 U/L 69 U/L Troponin I 0.32 NG/ML 0.41 NG/ML White Blood Count 7.6 TH/MM3 Red Blood Count 5.10 MIL/MM3 Hemoglobin 15.8 GM/DL Hematocrit 45.2 % Mean Corpuscular Volume 88.6 FL Mean Corpuscular Hemoglobin 31.0 PG Mean Corpuscular Hemoglobin Concent 35.1 % Red Cell Distribution Width 13.5 % Platelet Count 242 TH/MM3 Mean Platelet Volume 7.4 FL Neutrophils (%) (Auto) 42.5 % Lymphocytes (%) (Auto) 47.8 % Monocytes (%) (Auto) 7.6 % Eosinophils (%) (Auto) 1.0 % Basophils (%) (Auto) 1.1 % Neutrophils # (Auto) 3.2 TH/MM3 Lymphocytes # (Auto) 3.7 TH/MM3 Monocytes # (Auto) 0.6 TH/MM3 Eosinophils # (Auto) 0.1 TH/MM3 Basophils # (Auto) 0.1 TH/MM3 CBC Comment DIFF FINAL Differential Comment Blood Urea Nitrogen 15 MG/DL Creatinine 1.15 MG/DL Random Glucose 82 MG/DL Calcium Level 8.5 MG/DL Sodium Level 141 MEQ/L Potassium Level 3.9 MEQ/L Chloride Level 104 MEQ/L Carbon Dioxide Level 28.6 MEQ/L Anion Gap 8 MEQ/L Estimat Glomerular Filtration Rate 72 ML/MIN Imaging Last Impressions Chest X-Ray 02/11/17 1214 Signed Impressions: Service Date/Time: Saturday, February 11, 2017 12:41 - CONCLUSION: No acute intrathoracic disease.. Ramón Yip MD Assessment and Plan Problem List: (1) Atrial fibrillation with RVR ICD Codes: I48.91 - Unspecified atrial fibrillation Status: Acute Plan: 36-year-old male with Atrial fibrillation with biventricular response. 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
[2017-02-12] MEDS ORDERED: DIGOXIN 0.5 MG/2 ML VIAL IV PUSH ONE (12:45)
[2017-02-12] MEDS: ASPIRIN 325 MG TAB PO SCH (13:23)
[2017-02-12] MEDS: DIGOXIN 0.5 MG/2 ML VIAL IV PUSH SCH ×2 (17:06→21:48)
[2017-02-12] MEDS ORDERED: TEMAZEPAM 15 MG CAP PO PRN (21:00)
[2017-02-12] MEDS: clonazePAM 1 MG TAB PO SCH (21:43)
[2017-02-13] VITALS (26 sets, daily range): BP systolic 82–110; BP diastolic 52–82; PULSE 65–144; RESP 16; TEMP 97.3–98.3; O2SAT 96–98
--- NOTE | 2017-02-13 09:19 | PD.CARD.PN ---
Subjective Subjective Remarks no cv complaints still i afib with rvr Objective Medications Current Medications Medications (Trade) Dose Ordered Sig/Claire Route Start Time Stop Time Status Last Admin (NS Flush) 2 ml UNSCH PRN IV FLUSH 02/11/17 14:15 (NS Flush) 2 ml BID IV FLUSH 02/11/17 21:00 02/12/17 21:00 (Narcan Inj) 0.4 mg UNSCH PRN IV PUSH 02/11/17 14:15 (Multaq) 400 mg BID PO 02/11/17 21:00 02/12/17 21:43 (Toprol Xl) 75 mg BID PO 02/11/17 21:00 02/12/17 21:43 (Cozaar) 50 mg DAILY PO 02/12/17 09:00 02/12/17 09:42 (KlonoPIN) 2 mg HS PO 02/11/17 21:00 02/12/17 21:43 (Robins 5-325 Mg) 1 tab Q4H PRN PO 02/11/17 20:00 (Robins 10-325 Mg) 1 tab Q4H PRN PO 02/11/17 20:00 02/12/17 18:36 (Tylenol) 650 mg Q4H PRN PO 02/12/17 08:45 (Zofran Inj) 4 mg Q6H PRN IV PUSH 02/12/17 08:45 (Michelle-Colace) 1 tab BID PRN PO 02/12/17 08:45 (Mag-Al Plus Susp Liq) 30 ml Q6H PRN PO 02/12/17 08:45 (Restoril) 15 mg HS PRN PO 02/12/17 21:00 (Aspirin) 325 mg DAILY PO 02/12/17 12:45 02/12/17 13:23 Vital Signs / I&O Vital Signs Date Time Temp Pulse Resp B/P (MAP) Pulse Ox O2 Delivery O2 Flow Rate FiO2 02/13/17 07:00 98.3 106 16 107/82 (90) 97 02/13/17 06:02 90 02/13/17 05:00 74 02/13/17 04:48 97.3 65 94/65 (75) 98 02/13/17 04:00 72 02/13/17 03:36 79 02/13/17 02:00 72 02/13/17 01:00 94 02/13/17 00:00 97.5 80 107/72 (84) 98 02/13/17 00:00 102 02/12/17 23:00 107 02/12/17 22:00 118 02/12/17 21:00 108 02/12/17 20:00 97.2 111 105/67 (80) 99 02/12/17 20:00 108 02/12/17 19:00 108 02/12/17 18:00 122 02/12/17 17:00 106 02/12/17 16:00 106 02/12/17 15:00 98.4 107 18 96/59 (71) 97 02/12/17 15:00 121 02/12/17 14:00 105 02/12/17 13:00 120 02/12/17 12:00 119 02/12/17 11:00 98.4 119 20 100/65 (77) 96 02/12/17 11:00 117 02/12/17 11:00 19 02/12/17 10:00 118 02/12/17 09:30 119/81 (94) I/O 02/12/17 02/12/17 02/12/17 02/13/17 02/13/17 02/13/17 07:00 15:00 23:00 07:00 15:00 23:00 Intake Total 480 ml 240 ml Output Total 400 ml 325 ml Balance 80 ml -85 ml Intake Oral 480 ml 240 ml Output Urine Total 400 ml 325 ml Physical Exam GENERAL: Well-nourished, well-developed patient. SKIN: Warm and dry. HEAD: Normocephalic. EYES: No scleral icterus. No injection or drainage. NECK: Supple, trachea midline. No JVD or lymphadenopathy. CARDIOVASCULAR: Irr irr NO murmurs, gallops, or rubs. RESPIRATORY: Breath sounds equal bilaterally. No accessory muscle use. GASTROINTESTINAL: Abdomen soft, non-tender, nondistended. EXTREMITIES: No cyanosis, or edema. NEUROLOGICAL: Awake, alert, and oriented x 3. Non-focal. Assessment and Plan Problem List: (1) Atrial fibrillation with RVR ICD Codes: I48.91 - Unspecified atrial fibrillation Status: Acute Plan: 36-year-old male with Atrial fibrillation with biventricular response. Rate currently not control Plan: Cont on Multaq, Toprol-XL, Cont Digoxin Cont ASA Dr. 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
[2017-02-13] MEDS ORDERED: DIGOXIN 0.125 MG TAB PO SCH (09:30)
[2017-02-13] MEDS: METOPROLOL SUCCINATE 50 MG EXTENDED RELEASE TAB PO SCH ×2 (09:32→21:00)
[2017-02-13] MEDS: ACETAMINOPHEN/HYDROcodone 325 MG/10 MG TAB PO PRN ×2 (09:33→20:17)
[2017-02-13] MEDS: ASPIRIN 325 MG TAB PO SCH (09:33)
[2017-02-13] MEDS: LOSARTAN 50 MG TAB PO SCH (09:33)
[2017-02-13] MEDS: DRONEDARONE 400 MG TAB PO SCH ×2 (09:33→20:17)
[2017-02-13] MEDS: SODIUM CHLORIDE 0.9% FLUSH 10 ML FLUSH IV FLUSH SCH ×2 (09:41→20:17)
--- NOTE | 2017-02-13 11:13 | HHI.PR ---
Subjective Remarks Follow-up atrial fibrillation with biventricular response 02/12/17-patient seen and examined, still in A. fib with low BP however improved now. Patient states he does no want to take digoxin. Denies any chest pain 02/13/17-patient seen and examined, rate currently controlled and patient was threatening to leave AMA after 5 PM. Denies any shortness of breath or chest pain. Objective Vitals Vital Signs Date Time Temp Pulse Resp B/P (MAP) Pulse Ox O2 Delivery O2 Flow Rate FiO2 02/13/17 07:00 98.3 106 16 107/82 (90) 97 02/13/17 06:02 90 02/13/17 05:00 74 02/13/17 04:48 97.3 65 94/65 (75) 98 02/13/17 04:00 72 02/13/17 03:36 79 02/13/17 02:00 72 02/13/17 01:00 94 02/13/17 00:00 97.5 80 107/72 (84) 98 02/13/17 00:00 102 02/12/17 23:00 107 02/12/17 22:00 118 02/12/17 21:00 108 02/12/17 20:00 97.2 111 105/67 (80) 99 02/12/17 20:00 108 02/12/17 19:00 108 02/12/17 18:00 122 02/12/17 17:00 106 02/12/17 16:00 106 02/12/17 15:00 98.4 107 18 96/59 (71) 97 02/12/17 15:00 121 02/12/17 14:00 105 02/12/17 13:00 120 02/12/17 12:00 119 I/O 02/12/17 02/12/17 02/12/17 02/13/17 02/13/17 02/13/17 07:00 15:00 23:00 07:00 15:00 23:00 Intake Total 480 ml 240 ml Output Total 400 ml 325 ml Balance 80 ml -85 ml Intake Oral 480 ml 240 ml Output Urine Total 400 ml 325 ml Result Diagram: 02/12/17 0504 02/12/17 0504 Objective Remarks GENERAL: NAD SKIN: Warm and dry. HEAD: Normocephalic. EYES: No scleral icterus. No injection or drainage. NECK: Supple, trachea midline. No JVD or lymphadenopathy. CARDIOVASCULAR: Irregular Regular rate and rhythm without murmurs, gallops, or rubs. RESPIRATORY: Breath sounds equal bilaterally. No accessory muscle use. GASTROINTESTINAL: Abdomen soft, non-tender, nondistended. MUSCULOSKELETAL: No cyanosis, or edema. BACK: Nontender without obvious deformity. No CVA tenderness. 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
[2017-02-13] MEDS: clonazePAM 1 MG TAB PO SCH (20:17)
[2017-02-14] VITALS (8 sets, daily range): BP systolic 88; BP diastolic 56; PULSE 64–88; TEMP 97.9; O2SAT 99
--- NOTE | 2017-02-14 08:47 | HHI.DS ---
Discharge Summary Admission Date Feb 11, 2017 at 14:08 Discharge Date: Feb 14, 2017 Admitting Diagnosis acute A. 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 (3) Noncompliance ICD Code: Z91.19 - Patient's noncompliance with other medical treatment and regimen Procedures None Brief History - From Admission chest pain after waking up in am simlar to pain before he had mi has not had it for one year took addtional lopresso 75mg took xarelto krishna radiates to back and left arm underneath did not take nitro felt dizzy a bit felt somewhat nausea heart was racing brought to hospital had a little bit of coughing has bene taking allergy meds at night - mainly benadryl- has ferrets at home no fever ef30% no urianry symptoms no blood had diarrhea - about 4 days ago , also has been urinating more ever since has been loperamide about 3 days ago also had same gi symptoms after eating something together CBC/BMP: 02/12/17 0504 02/12/17 0504 Significant Findings Laboratory Tests Test 02/11/17 12:30 02/11/17 13:40 02/11/17 20:38 02/12/17 00:10 Prothrombin Time 16.4 SEC (9.8-11.6) Activated Partial Thromboplast Time 38.1 SEC (24.3-30.1) Creatinine 1.31 MG/DL (0.60-1.30) Estimat Glomerular Filtration Rate 62 ML/MIN (>89) Troponin I 0.15 NG/ML (0.02-0.05) 0.32 NG/ML (0.02-0.05) 0.41 NG/ML (0.02-0.05) B-Type Natriuretic Peptide 102 PG/ML (0-100) Urine Bacteria RARE /hpf (NONE) Test 02/12/17 05:04 Lymphocytes (%) (Auto) 47.8 % (9.0-44.0) Estimat Glomerular Filtration Rate 72 ML/MIN (>89) Imaging Last Impressions Chest X-Ray 02/11/17 1214 Signed Impressions: Service Date/Time: Saturday, February 11, 2017 12:41 - CONCLUSION: No acute intrathoracic disease.. Ramón Yip MD PE at Discharge GENERAL: NAD SKIN: Warm and dry. HEAD: Normocephalic. EYES: No scleral icterus. No injection or drainage. NECK: Supple, trachea midline. No JVD or lymphadenopathy. CARDIOVASCULAR: Irregular Regular rate and rhythm without murmurs, gallops, or rubs. RESPIRATORY: Breath sounds equal bilaterally. No accessory muscle use. GASTROINTESTINAL: Abdomen soft, non-tender, nondistended. MUSCULOSKELETAL: No cyanosis, or edema. BACK: Nontender without obvious deformity. No CVA tenderness. 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
== END 2017-02-14 08:17 | disposition left against medical advice (07) | DRG 309 ==
LOC: NEPE 12:00 → NEDA 14:08 → HCIS 16:32
PROVIDERS: ADMIT Hospitalist; ATTEND Hospitalist
DX: I48.91 Unspecified atrial fibrillation (principal); N17.9 Acute kidney failure, unspecified; G11.1 Early-onset cerebellar ataxia; I50.9 Heart failure, unspecified; I11.0 Hypertensive heart disease with heart failure; E86.0 Dehydration; I25.2 Old myocardial infarction; R74.8 Abnormal levels of other serum enzymes; Z99.3 Dependence on wheelchair; Z91.19 Patient's noncompliance with other medical treatment and regimen; F12.90 Cannabis use, unspecified, uncomplicated; E78.00 Pure hypercholesterolemia, unspecified; Z98.1 Arthrodesis status
CPT/HCPCS: 71010; 80048; 81001; 82550; 83735; 83880; 84443; 84484; 85025; 85610; 85730; 93005; 96374; J1160